=== PATIENT | female | born 1970 | race Caucasian/White ===

== ENCOUNTER 2025-01-09 11:51 | Outpatient (REF) | payer BC, SELFPAY ==
--- OUTSIDE RECORDS SUMMARY | 2025-01-09 13:33 | XMS_ITS ---
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 Role Phone Suzie Lopez Primary Care Provider DANIELLE Dan Unavailable [phone] REASON FOR VISIT 6 month f/u Encounters Encounter Location Date Provider Diagnosis [facility] [address] [address] 01/09/2025 DANIELLE PAINTER Plan Of Treatment Next Appt Details Provider Name:DANIELLE PAINTER, 01/09/2025 03:15:00 PM, [address] [address], [place], [address], Progress Notes * ASHLEIGHMarah JoelDOB:1970 (54 yo F)Acc No.[id number]:01/09/2025 Patient:?Marah SOTELO Provider:?Danielle Painter DPM :1970???Age:54 Y???Sex:Female D ate:01/09/2025 Address:[address] [place], [place] [id number] Pcp:Suzie Lopez Subjective: * Chief Complaints: * ???1. 6 month f/u. * Medical History:? Objective: * Vitals:? Assessment: Plan: * Treatment: * Billing Information: * Visit Code:? * Procedure Codes:? * Electronic signature of EDWIN PAINTER D.P.M on 01/09/2025 at 01:33 PM EDT Sign off status: Pending * Provider:?Danielle Painter DPM Date:? 01/09/2025 Generated for Antonio brown/Alicia/Shy on:?01/09/2025 01:33 PM EDT
--- OUTSIDE RECORDS SUMMARY | 2025-01-09 13:33 | XMS_ITS | Clinical Summary ---
Author Organization 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 Role Phone Unavailable Primary Care Provider Unavailabl e Social History Tobacco Use Types Packs/Day Years Used Date Smoking Tobacco: Never Assessed Comments Unknown Sex and Gender Information Value Date Recorded Sex Assigned at Not on file Legal Sex Female 4:15 PM EDT Gender Identity Not on file Sexual Orientation Not on file Plan of Treatment Health Maintenance Due Date Last Done Comments Breast Cancer Screening 1970 Hepatitis B Vaccine (1 of 3 - 19+ 3-dose series) 02/27/1991 Colorectal Cancer Screening: Annual FOBT 02/27/2021 Colorectal Cancer Screening: Colonoscopy 02/27/2021 Colorectal Cancer Screening: Sigmoidoscopy 02/27/2021 Influenza Vaccine (#1) 2024 Pneumococcal Vaccine: Pediat rics (0 to 5 Years) and At-Risk Patients (6 to 64 Years) Aged Out No longer eligible b ased on patient's age to complete this topic Insurance
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
--- OUTSIDE RECORDS SUMMARY | 2025-01-09 13:34 | XMS_ITS ---
Author Organization [facility] Address [address] [address] Care Team Providers Care Heat Reader Name Role Phone Suzie Lopez Primary Care Provider LOUIE Dan [phone] REASON FOR VISIT itemized bills Encounters Encounter Location Date Provider Diagnosis [facility] [address] [address] 04/01/2024 LOUIE EDWARD Plan Of Treatment Next Appt Details Provider Name:LOUIE EDWARD, 01/09/2025 03:15:00 PM, [address] [address], [place], [address], Progress Notes * ASHLEIGH OdalyssherrieDOB:1970 (54 yo F)Acc No.[id number]:04/01/2024 Patient:?Marah SOTELO :1970???Age:54 Y???Sex:Female Address:[address] [place] [id number] * true * Date:? Generated for Printi kevin/Alicia/eTransmitting on:?01/09/2025 01:33 PM EDT
== END 2025-01-09 11:52 | disposition home or self-care (01) ==
LOC: HO.MAMMO 11:51
PROVIDERS: Visit Provider Physician Assistant
DX: Z12.31 Encounter for screening mammogram for malignant neoplasm of breast (principal)
CPT/HCPCS: 77063; 77067

== ENCOUNTER → 2025-01-09 12:00 | Outpatient (BNV) | payer BC, SELFPAY | PROVIDERS: Visit Provider Internal Medicine | DX: Z12.31 Encounter for screening mammogram for malignant neoplasm of breast (principal) | CPT/HCPCS: 77063; 77067 ==